=== PATIENT | male | born 1985 | race American Indian/Alaskan Native ===

== ENCOUNTER 2016-05-10 11:16 | Emergency (ER) | payer BC ==
[2016-05-10 11:46] VITALS: BP 132/83
== END 2016-05-10 16:40 | disposition left against medical advice (07) ==
LOC: ED 11:16
DX: J11.1 Influenza due to unidentified influenza virus with other respiratory manifestations (principal); Z53.21 Procedure and treatment not carried out due to patient leaving prior to being seen by health care provider

== ENCOUNTER 2016-08-08 21:52 | Emergency (ER) | payer BC ==
[2016-08-08 22:38] VITALS: BP 132/87
--- NOTE | 2016-08-09 00:15 | Emergency Department Report ---
ED ENT HPI - General Chief complaint: Dental/Oral Stated complaint: TOOTHACHE Source: patient Mode of arrival: Ambulatory Limitations: No Limitations - History of Present Illness Initial comments: 31-year-old -Finn[place] male comes in for complaint of pain to his left upper teeth times 1-1/2 weeks. Patient reports that he has an appointment on Monday which is that he can get to see Dr. Beverley Anderson. Patient reports in the past he was on amoxicillin and Tylenol 4. He cannot recall when the last time he's been on that medication. Patient has no past medical history currently takes no medication. He reports is allergic to NSAIDs. MD complaint: tooth pain - Related Data Previous Rx's Medication Instructions Recorded Last Taken Type Famotidine [Pepcid] 20 mg PO DAILY #30 tablet 06/05/15 Unknown Rx traMADol [Ultram 50 MG tab] 50 - 100 mg PO Q8HR PRN #30 tablet 06/05/15 Unknown Rx Acetaminophen with Codeine 1 tab PO Q6HR #15 tab 08/09/16 Unknown Rx [Acetaminophen-Codeine #4 TAB] Allergies Allergy/AdvReac Type Severity Reaction Status Date / Time NSAIDS (Non-Steroidal Allergy Unknown Verified 05/10/16 11:46 Anti-Inflamma ED Dental HPI - General Chief complaint: Dental/Oral Stated complaint: TOOTHACHE Source: patient Mode of arrival: Ambulatory Limitations: No Limitations - Related Data Previous Rx's Medication Instructions Recorded Last Taken Type Famotidine [Pepcid] 20 mg PO DAILY #30 tablet 06/05/15 Unknown Rx traMADol [Ultram 50 MG tab] 50 - 100 mg PO Q8HR PRN #30 tablet 06/05/15 Unknown Rx Acetaminophen with Codeine 1 tab PO Q6HR #15 tab 08/09/16 Unknown Rx [Acetaminophen-Codeine #4 TAB] Allergies Allergy/AdvReac Type Severity Reaction Status Date / Time NSAIDS (Non-Steroidal Allergy Unknown Verified 05/10/16 11:46 Anti-Inflamma ED Review of Systems ROS: Stated complaint: TOOTHACHE Other details as noted in HPI Constitutional: denies: chills, fever Eyes: denies: eye pain, eye discharge, vision change ENT: dental pain Respiratory: denies: cough, shortness of breath, wheezing Cardiovascular: denies: chest pain, palpitations Endocrine: no symptoms reported Gastrointestinal: denies: abdominal pain, nausea, diarrhea Genitourinary: denies: urgency, dysuria Musculoskeletal: denies: back pain, joint swelling, arthralgia Skin: denies: rash, lesions Neurological: denies: headache, weakness, paresthesias Psychiatric: denies: anxiety, depression Hematological/Lymphatic: denies: easy bleeding, easy bruising ED Past Medical Hx - Past Medical History Previous Medical History?: No - Surgical History Past Surgical History?: No - Social History Smoking Status: Current Every Day Smoker Substance Use Type: None - Medications Home Medications: Home Medications Medication Instructions Recorded Confirmed Last Taken Type Famotidine [Pepcid] 20 mg PO DAILY #30 tablet 06/05/15 Unknown Rx traMADol [Ultram 50 MG tab] 50 - 100 mg PO Q8HR PRN #30 tablet 06/05/15 Unknown Rx Acetaminophen with Codeine 1 tab PO Q6HR #15 tab 08/09/16 Unknown Rx [Acetaminophen-Codeine #4 TAB] ED Physical Exam - General Limitations: No Limitations General appearance: alert, in no apparent distress - Head Head exam: Present: atraumatic, normocephalic - Eye Eye exam: Present: normal appearance - ENT ENT exam: Present: normal exam - Expanded ENT Exam Expanded Teeth exam: Present: dental tenderness # (18) - Neck Neck exam: Present: normal inspection, other (lower jaw tenderness). Absent: tenderness, lymphadenopathy, thyromegaly - Respiratory Respiratory exam: Present: normal lung sounds bilaterally - Cardiovascular Cardiovascular Exam: Present: regular rate ED Course Vital Signs 08/08/16 22:36 Temperature 98.4 F Pulse Rate 82 Respiratory 18 Rate Blood Pressure 132/87 O2 Sat by Pulse 98 Oximetry Critical care attestation.: If time is entered above; I have spent that time in minutes in the direct care of this critically ill patient, excluding procedure time. ED Disposition Clinical Impression: Toothache Disposition: DISCHARGED TO HOME OR SELFCARE Is pt being admited?: No Does the pt Need Aspirin: No Condition: Stable Instructions: Toothache (ED) Additional Instructions: Take medication for pain as prescribed. Do not operate heavy machinery while taking pain medication. Follow up with her dentist on Monday that she have a scheduled appointment for. Prescriptions: Acetaminophen with Codeine [Acetaminophen-Codeine #4 TAB] 1 tab PO Q6HR #15 tab Referrals: PRIMARY CARE, [Primary Care Provider] - 3-5 Days Forms: Work/School Release Form(ED)
[2016-08-09] MEDS: NORCO 5/325 PO ONE (00:26)
== END 2016-08-09 00:40 | disposition home or self-care (01) ==
LOC: ED 21:52
DX: K08.89 Other specified disorders of teeth and supporting structures (principal); F17.200 Nicotine dependence, unspecified, uncomplicated; Z88.6 Allergy status to analgesic agent
CPT/HCPCS: 99282

== ENCOUNTER 2017-01-04 22:49 | Emergency (ER) | payer BC ==
[2017-01-05 00:12] LABS: Alanine Aminotransferase 26 units/L (7-56); Albumin 4.3 g/dL (3.9-5); Albumin/Globulin Ratio 1.7 %; Alkaline Phosphatase 77 units/L (35-129); Anion Gap 20 mmol/L; BUN/Creatinine Ratio 18.88; Blood Urea Nitrogen 17 mg/dL (9-20); Calcium 9.2 mg/dL (8.4-10.2); Carbon Dioxide 26 mmol/L (22-30); Chloride 102.3 mmol/L (98-107); Glucose 87 mg/dL (75-100); Lipase 23 units/L (13-60); Potassium 3.8 mmol/L (3.6-5.0); Sodium 144 mmol/L (137-145); Total Protein 6.8 g/dL (6.3-8.2)
[2017-01-05 00:30] LABS: Eosinophils % (Auto) 5.7 % (0.0-4.3); Hematocrit 43.7 % (35.5-45.6); Hemoglobin 14.5 gm/dl (11.8-15.2); Mean Corpuscular HGB Conc 33 % (32-34); Mean Corpuscular Hemoglobin 31 pg (28-32); Mean Corpuscular Volume 94 fl (84-94); Platelet Count 209 K/mm3 (140-440); Red Blood Count 4.65 M/mm3 (3.65-5.03); Red Cell Distribution Width 13.6 % (13.2-15.2); White Blood Count 7.4 K/mm3 (4.5-11.0)
[2017-01-05 00:38] LABS: Bilirubin,Urine NEG (Negative); Blood,Urine NEG (Negative); Ketones,Urine TR mg/dL (Negative); Leukocyte Esterase,Urine NEG (Negative); Mucus,Urine 1+ /HPF; Nitrite,Urine NEG (Negative); WBC,Urine < 1.0 /HPF (0.0-6.0)
[2017-01-05] MEDS ORDERED: ULTRAM PO ONE (11:41)
--- NOTE | 2017-01-05 12:18 | Cat Scan Report ---
CT ABDOMEN AND PELVIS WITHOUT CONTRAST INDICATION: Right upper flank pain. COMPARISON: 06/05/2015 FINDINGS: Noncontrast abdomen and pelvis CT performed. LUNG BASES: Nonspecific distal esophageal wall prominence/thickening, not excluded for gastroesophageal reflux and/or hiatal hernia, amongst others. ABDOMEN: Please note that sensitivity to detect small visceral lesions is limited due to the absence of intravenous or oral contrast. Grossly unremarkable unenhanced liver, spleen, gallbladder, pancreas, adrenals, aorta, IVC and kidneys. No ascites or size significant adenopathy. Nonopacified GI tract evaluation limited, though grossly nonobstructive. No right lower quadrant inflammatory changes with appendix questionably visualized as on axial image 110, series 2. Moderate colonic stool, most along the ascending and transverse colon. PELVIS: Moderate rectosigmoid stool as well. Grossly unremarkable non-opacified urinary bladder, seminal vesicles and the prostate. Minimal prostatic calcifications and a small right hemipelvic phlebolith again noted. No free fluid or significant adenopathy. 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 Mild thoracolumbar dextroscoliosis. CONCLUSION: No acute CT abnormality on this unenhanced exam with few incidental findings, including possible constipation, as described. Please correlate. Thank you for the opportunity to participate in this patient's care.
--- NOTE | 2017-01-05 13:10 | Emergency Department Report ---
ED Abdominal Pain HPI - General Chief Complaint: Abdominal Pain Stated Complaint: RT FLANK PAIN Time Seen by Provider: 01/05/17 11:31 Source: patient Mode of arrival: Ambulatory Limitations: No Limitations - History of Present Illness Initial Comments: 31 yo male with a past medical history of H. pylori but no surgical history presents complaining of right flank pain 2 days. Pain is in her right upper posterior back. Pain is intermittent, aching and stabbing, rated 7/10 in intensity. Worse with bending forward. He denies nausea, vomiting, hematuria, dysuria, fever, shortness of breath, or chest pain. Severity scale (0 -10): 8 - Related Data Previous Rx's Medication Instructions Recorded Last Taken Type Famotidine [Pepcid] 20 mg PO DAILY #30 tablet 06/05/15 Unknown Rx traMADol [Ultram 50 MG tab] 50 - 100 mg PO Q8HR PRN #30 tablet 06/05/15 Unknown Rx Acetaminophen with Codeine 1 tab PO Q6HR #15 tab 08/09/16 Unknown Rx [Acetaminophen-Codeine #4 TAB] traMADol [Ultram 50 MG tab] 50 mg PO Q6HR PRN #20 tablet 01/05/17 Unknown Rx Allergies Allergy/AdvReac Type Severity Reaction Status Date / Time NSAIDS (Non-Steroidal Allergy Unknown Verified 05/10/16 11:46 Anti-Inflamma ED Review of Systems ROS: Stated complaint: RT FLANK PAIN Other details as noted in HPI Comment: All other systems reviewed and negative Other: Constitutional: No fevers chills Eyes: No eye pain visual changes ENT: No ear pain or throat pain Neck: Denies pain Respiratory: Denies cough wheezing shortness of breath Cardiovascular: Denies chest pain, palpitations, syncope GI: Denies abdominal pain, nausea, vomiting, diarrhea : Denies dysuria, urinary frequency, or urgency Musculoskeletal:as per hpi Skin: Denies rash, lesions, erythema Neurologic: Denies headache, numbness, weakness Psychiatric: Denies suicidal ideation, hallucinations ED Past Medical Hx - Past Medical History Previous Medical History?: Yes Additional medical history: H PYLORIC - Surgical History Past Surgical History?: No - Social History Smoking Status: Current Every Day Smoker Substance Use Type: None - Medications Home Medications: Home Medications Medication Instructions Recorded Confirmed Last Taken Type Famotidine [Pepcid] 20 mg PO DAILY #30 tablet 06/05/15 Unknown Rx traMADol [Ultram 50 MG tab] 50 - 100 mg PO Q8HR PRN #30 tablet 06/05/15 Unknown Rx Acetaminophen with Codeine 1 tab PO Q6HR #15 tab 08/09/16 Unknown Rx [Acetaminophen-Codeine #4 TAB] traMADol [Ultram 50 MG tab] 50 mg PO Q6HR PRN #20 tablet 01/05/17 Unknown Rx ED Physical Exam - General Limitations: No Limitations - Other Other exam information: General: No limitations, patient is alert in no acute distress Head exam: Atraumatic, normocephalic Eyes exam: Normal appearance ENT: Moist mucous membrane, normal oropharynx Neck exam: Normal inspection, full range of motion Respiratory exam: Clear to auscultation bilateral, no wheezes, rales, crackles Cardiovascular: Normal rate and rhythm, normal heart sounds Abdomen: Soft, nondistended, and nontender, with normal bowel sounds, no rebound, or guarding Extremity: Full range of motion normal inspection no deformity Back: Normal Inspection, full range of motion, no tenderness Neurologic: Alert, oriented x3, cranial nerves intact, no motor or sensory deficit Psychiatric: normal affect, normal mood Skin: Warm, dry, intact ED Course Vital Signs 01/04/17 01/04/17 01/05/17 22:55 23:04 05:27 Temperature 97.7 F 97.5 F L Pulse Rate 95 H 93 H 74 Respiratory 18 20 18 Rate Blood Pressure 126/75 126/75 109/87 Blood Pressure [Right] O2 Sat by Pulse 98 98 99 Oximetry 01/05/17 01/05/17 08:33 08:40 Temperature 98.6 F Pulse Rate 71 Respiratory 18 20 Rate Blood Pressure Blood Pressure 109/86 [Right] O2 Sat by Pulse Oximetry - Reevaluation(s) Reevaluation #1: 01/05/17 13:08 Tramadol given for pain ED Medical Decision Making - Lab Data Result diagrams: 01/04/17 23:26 01/04/17 23:26 Lab Results 01/04/17 01/04/17 01/04/17 Range/Units 23:26 23:26 23:57 WBC 7.4 (4.5-11.0) K/mm3 RBC 4.65 (3.65-5.03) M/mm3 Hgb 14.5 (11.8-15.2) gm/dl Hct 43.7 (35.5-45.6) % MCV 94 (84-94) fl MCH 31 (28-32) pg MCHC 33 (32-34) % RDW 13.6 (13.2-15.2) % Plt Count 209 (140-440) K/mm3 Lymph % (Auto) 48.0 H (13.4-35.0) % Jackson % (Auto) 5.5 (0.0-7.3) % Eos % (Auto) 5.7 H (0.0-4.3) % Baso % (Auto) 1.0 (0.0-1.8) % Lymph # 3.5 (1.2-5.4) K/mm3 Jackson # 0.4 (0.0-0.8) K/mm3 Eos # 0.4 (0.0-0.4) K/mm3 Baso # 0.1 (0.0-0.1) K/mm3 Seg Neutrophils % 39.8 L (40.0-70.0) % Seg Neutrophils # 2.9 (1.8-7.7) K/mm3 Sodium 144 (137-145) mmol/L Potassium 3.8 (3.6-5.0) mmol/L Chloride 102.3 (98-107) mmol/L Carbon Dioxide 26 (22-30) mmol/L Anion Gap 20 mmol/L BUN 17 (9-20) mg/dL Creatinine 0.9 (0.8-1.5) mg/dL Estimated GFR > 60 ml/min BUN/Creatinine Ratio 18.88 % Glucose 87 (75-100) mg/dL Calcium 9.2 (8.4-10.2) mg/dL Total Bilirubin 0.30 (0.1-1.2) mg/dL AST 21 (5-40) units/L ALT 26 (7-56) units/L Alkaline Phosphatase 77 (35-129) units/L Total Protein 6.8 (6.3-8.2) g/dL Albumin 4.3 (3.9-5) g/dL Albumin/Globulin Ratio 1.7 % Lipase 23 (13-60) units/L Urine Color Yellow (Yellow) Urine Turbidity Clear (Clear) Urine pH 5.0 (5.0-7.0) Ur Specific [place] 1.034 H (1.003-1.030) Urine Protein 30 mg/dl (Negative) mg/dL Urine Glucose (UA) Neg (Negative) mg/dL Urine Ketones Tr (Negative) mg/dL Urine Blood Neg (Negative) Urine Nitrite Neg (Negative) Urine Bilirubin Neg (Negative) Urine Urobilinogen 2.0 (<2.0) mg/dL Ur Leukocyte Esterase Neg (Negative) Urine WBC (Auto) < 1.0 (0.0-6.0) /HPF Urine RBC (Auto) 1.0 (0.0-6.0) /HPF Calcium Oxalate Crystal 1+ Urine Mucus 1+ /HPF - Radiology Data Radiology results: report reviewed CT abd and pelvis noncontrast: No acute abnormalities. - Medical Decision Making Patient be treated for back strain since his pain is reproducible with movement and denies associated symptoms. CT performed since patient had calcium oxalate crystals and urine however, no renal stones or gallstones identified. Patient be discharged home with symptomatic treatment - Differential Diagnosis renal colic, MSK pain, biliary colic, UTI, Critical Care Time: No Critical care attestation.: If time is entered above; I have spent that time in minutes in the direct care of this critically ill patient, excluding procedure time. ED Disposition Clinical Impression: Back strain Disposition: DC-01 TO HOME OR SELFCARE Is pt being admited?: No Does the pt Need Aspirin: No Condition: Stable Instructions: Flank Pain (ED) Additional Instructions: Take the medication as prescribed. Follow-up with your primary care doctor. Return symptoms worsen Prescriptions: traMADol [Ultram 50 MG tab] 50 mg PO Q6HR PRN #20 tablet PRN Reason: Pain Referrals: LORNA LOONEY MD [Primary Care Provider] - 3-5 Days Time of Disposition: 13:10
[2017-01-05 13:24] VITALS: BP 138/84
== END 2017-01-05 13:25 | disposition home or self-care (01) ==
LOC: ED 22:49
DX: S29.012A Strain of muscle and tendon of back wall of thorax, initial encounter (principal); F17.200 Nicotine dependence, unspecified, uncomplicated; Z88.6 Allergy status to analgesic agent; X58.XXXA Exposure to other specified factors, initial encounter; Y93.9 Activity, unspecified; Y99.9 Unspecified external cause status; Y92.89 Other specified places as the place of occurrence of the external cause
CPT/HCPCS: 36415; 74176; 80053; 81001; 83690; 85025; 99284

== ENCOUNTER 2021-08-18 00:08 | Emergency (ER) | payer SELFPAY ==
[2021-08-18 00:28] VITALS: BP 108/81
--- NOTE | 2021-08-18 02:24 | XRay Report ---
RIGHT FOOT 3 VIEW(S) INDICATION / CLINICAL INFORMATION: INJURY COMPARISON: None available. FINDINGS: BONES / JOINT(S): Acute minimally displaced fractures involving the second toe and third toe proximal phalanx adjacent to the interphalangeal joint demonstrated. No significant displacement. No signific ant arthritis. SOFT TISSUES: No significant abnormality. ADDITIONAL FINDINGS: None. IMPRESSION: 1. Nondisplaced fractures involving the distal aspect of the second and third toe proximal phalanx ar e present. Signer Name: David Reyes II, MD Signed: 08/18/2021 2:19 AM Workstation Name: [id number]
--- NOTE | 2021-08-18 08:50 | Emergency Department Report ---
ED Lower Extremity HPI - General Chief Complaint: Extremity Injury, Lower Stated Complaint: RIGHT FOOT PAIN Time Seen by Provider: 08/18/21 08:44 Source: patient Mode of arrival: Ambulatory Limitations: No Limitations - History of Present Illness Initial Comments: 36-year-old -[place]ub[place] male presents to the emergency room complaining of right foot second and third toe pain and swelling with redness. Patient states he had dropped a toilet bowl on his toe yesterday. He states the pain is worse when he bears weight or bend his toe. Patient reports he has been taking extra strength Tylenol. Complaint: foot injury Onset/Timin -: days(s) Injury: Toes: Right (Second and third) Type of Injury: blunt Place: work Severity scale (0 -10): 9 Improves With: immobilization Worsens With: weight bearing, movement, palpation Context: direct blow Associated Symptoms: swelling, able to partially bear weight Treatments Prior to Arrival: other (Acetaminophen) - Related Data Previous Rx's Medication Instructions Recorded Last Taken Type Famotidine [Pepcid] 20 mg PO DAILY #30 tablet 06/05/15 Unknown Rx traMADoL [Ultram 50 MG tab] 50 - 100 mg PO Q8HR PRN #30 tablet 06/05/15 Unknown Rx Acetaminophen with Codeine 1 tab PO Q6HR #15 tab 08/09/16 Unknown Rx [Acetaminophen-Codeine #4 TAB] traMADoL [Ultram 50 MG tab] 50 mg PO Q6HR PRN #20 tablet 01/05/17 Unknown Rx traMADoL [Ultram 50 MG tab] 50 mg PO Q6HR PRN #12 tablet 08/18/21 Unknown Rx Allergies Allergy/AdvReac Type Severity Reaction Status Date / Time NSAIDS (Non-Steroidal Allergy Unknown Verified 05/10/16 11:46 Anti-Inflamma ED Review of Systems ROS: Stated complaint: RIGHT FOOT PAIN Other details as noted in HPI Comment: All other systems reviewed and negative ED Past Medical Hx - Past Medical History Additional medical history: H PYLORIC - Social History Smoking Status: Current Every Day Smoker Substance Use Type: None - Medications Home Medications: Home Medications Medication Instructions Recorded Confirmed Last Taken Type Famotidine [Pepcid] 20 mg PO DAILY #30 tablet 06/05/15 Unknown Rx traMADoL [Ultram 50 MG tab] 50 - 100 mg PO Q8HR PRN #30 tablet 06/05/15 Unknown Rx Acetaminophen with Codeine 1 tab PO Q6HR #15 tab 08/09/16 Unknown Rx [Acetaminophen-Codeine #4 TAB] traMADoL [Ultram 50 MG tab] 50 mg PO Q6HR PRN #20 tablet 01/05/17 Unknown Rx traMADoL [Ultram 50 MG tab] 50 mg PO Q6HR PRN #12 tablet 08/18/21 Unknown Rx ED Physical Exam - General Limitations: No Limitations General appearance: alert, in no apparent distress - Head Head exam: Present: atraumatic, normocephalic - Eye Eye exam: Present: normal appearance - ENT ENT exam: Present: mucous membranes moist - Neck Neck exam: Present: normal inspection - Respiratory Respiratory exam: Present: normal lung sounds bilaterally. Absent: respiratory distress - Cardiovascular Cardiovascular Exam: Present: regular rate, normal rhythm. Absent: systolic murmur, diastolic murmur, rubs, gallop - GI/Abdominal GI/Abdominal exam: Present: soft, normal bowel sounds - Rectal Rectal exam: Present: deferred - Extremities Exam Extremities exam: Present: normal inspection - Expanded Lower Extremity Exam Right Hip exam: Present: full ROM Upper Leg exam: Present: normal inspection Knee exam: Present: normal inspection Lower Leg exam: Present: normal inspection Ankle exam: Present: normal inspection Foot/Toe exam: Present: tenderness (Second and third), swelling (Second and third), erythema (Second and third) Neuro vascular tendon exam: Present: no vascular compromise - Back Exam Back exam: Present: normal inspection - Neurological Exam Neurological exam: Present: alert, oriented X3 - Psychiatric Psychiatric exam: Present: normal affect, normal mood - Skin Skin exam: Present: warm, dry, intact, normal color. Absent: rash ED Course Vital Signs 08/18/21 00:12 Temperature 98.0 F Pulse Rate 99 H Respiratory 18 Rate Blood Pressure 108/81 O2 Sat by Pulse 97 Oximetry ED Lower Extremity MDM - Radiology Data Radiology results: report reviewed, image reviewed [facility] [address] [place] [address] XRay Report Signed Patient: HEMA MARRUFO MR#: [id number] : 1985 Acct:[id number] Age/Sex: 36 / M ADM Date: 08/18/21 Loc: ED Attending Dr: Ordering Physician: ED DOC, MD Date of Service: 08/18/21 Procedure(s): XR foot 3+V RT Accession Number(s): [id number] cc: ED MD TAMERA Fluoro Time In Minutes: RIGHT FOOT 3 VIEW(S) INDICATION / CLINICAL INFORMATION: INJURY COMPARISON: None available. FINDINGS: BONES / JOINT(S): Acute minimally displaced fractures involving the second toe and third toe proximal phalanx adjacent to the interphalangeal joint demonstrated. No significant displacement. No significant arthritis. SOFT TISSUES: No significant abnormality. ADDITIONAL FINDINGS: None. IMPRESSION: 1. Nondisplaced fractures involving the distal aspect of the second and third toe proximal phalanx are present. Signer Name: Marco Reyes II, MD Signed: 08/18/2021 2:19 AM Workstation Name: [id number] Transcribed By: YESSI Dictated By: MARCO REYES II, MD Electronically Authenticated By: MARCO REYES II, MD Signed Date/Time: 08/18/21218 DD/ 6 TD/TT: - Medical Decision Making 36-year-old -[place]ub[place] male presents to the emergency room complaining of right foot second and third toe pain and swelling with redness. Patient states he had dropped a toilet bowl on his toe yesterday. He states the pain is worse when he bears weight or bend his toe. Patient reports he has been taking extra strength Tylenol. X-ray reveals left's foot Nondisplaced fractures involving the distal aspect of the second and third toe proximal phalanx are present. Patient placed in a rayo tape Ortho shoe referral to orthopedics. Prescription for tramadol every 4-6 hours as needed for pain. Patient has a allergy to nonsteroidal anti-inflammatory medications. Critical care attestation.: If time is entered above; I have spent that time in minutes in the direct care of this critically ill patient, excluding procedure time. ED Disposition Clinical Impression: Pathological fracture, left toe(s), initial encounter for fracture Disposition: 01 HOME / SELF CARE / HOMELESS Is pt being admited?: No Does the pt Need Aspirin: No Condition: Stable Additional Instructions: Take pain medication as needed. Do not operate heavy machinery while taking meds. Is very important you follow-up with orthopedist as you have a fracture of 2 toes on the left foot. Prescriptions: traMADoL [Ultram 50 MG tab] 50 mg PO Q6HR PRN #12 tablet PRN Reason: Pain Referrals: SUMEET DANIEL MD [Staff Physician] - 3-5 Days Forms: Work/School Release Form(ED) Time of Disposition: 08:57
== END 2021-08-18 09:20 | disposition home or self-care (01) ==
LOC: ED 00:08
DX: S92.912A Unspecified fracture of left toe(s), initial encounter for closed fracture (principal); W04.XXXA Fall while being carried or supported by other persons, initial encounter; Y93.89 Activity, other specified; Y92.89 Other specified places as the place of occurrence of the external cause; Y99.8 Other external cause status
CPT/HCPCS: 99283

== ENCOUNTER 2021-11-30 03:22 | Emergency (ER) | payer SELFPAY ==
[2021-11-30 04:07] VITALS: BP 123/86
== END 2021-11-30 08:52 | disposition left against medical advice (07) ==
LOC: ED 03:22
DX: R68.84 Jaw pain (principal); Z53.21 Procedure and treatment not carried out due to patient leaving prior to being seen by health care provider